=== PATIENT | male | born 1990 | race American Indian/Alaskan Native ===

== ENCOUNTER 2019-11-08 05:38 | Emergency (ER) | payer SELFPAY ==
[2019-11-08 05:53] VITALS: BP 134/102
--- NOTE | 2019-11-08 07:29 | XRay Report ---
Right hand, 3 views INDICATION: Pain following injury FINDINGS: There are comminuted, displaced and angulated fractures involving the bases of the fourth a nd fifth metacarpals. The remaining bones of the hand are intact. There is no definite carpal bone fr acture or dislocation. Signer Name: Lex Reyes MD Signed: 11/08/2019 7:25 AM Workstation Name: [id number]
[2019-11-08] MEDS ORDERED: HYDROcodone/ACETAMINOPHEN 5-325 MG TAB PO ONE (09:17)
--- NOTE | 2019-11-08 09:24 | Emergency Department Report ---
Upper Extremity - HPI Chief Complaint: Extremity Injury, Upper Stated Complaint: RT HAND INJURY Time Seen by Provider: 11/08/19 08:46 Upper Extremity: Right Hand Occurred When: 2 Days Mechanism: Hit with Object Severity: mild Symptoms: Yes Swelling, Yes Bruising/Ecchymosis, No Pain with Movement, No Deformity, No Limited Range of Movement, No Numbness, No Weakness, No Laceration or Abrasion Other History: Patient is a 29-year-old male presents ED complaining of mild right finger pain that is much better from 2 days ago. Patient states 2 days ago he was angry and accidentally punched a fridge. Patient states initially he had some pain and then after he straining on his fingers the pain resolved. Patient does state that he noted some swelling to the hand. Patient states he had some pain medication which he took at home that relieved the pain. He denies any laceration or cuts to the finger or hand. ED Review of Systems ROS: Stated complaint: RT HAND INJURY Other details as noted in HPI Comment: All other systems reviewed and negative ED Past Medical Hx - Past Medical History Previous Medical History?: No - Surgical History Past Surgical History?: No - Social History Smoking Status: Current Every Day Smoker Substance Use Type: None, Marijuana - Medications Home Medications: Home Medications Medication Instructions Recorded Confirmed Last Taken Type HYDROcodone/APAP 5-325 [[place] 1 each PO Q6H #12 tablet 11/08/19 Unknown Rx 5-325 mg TAB] Ibuprofen [Motrin] 800 mg PO Q8HR #30 tablet 11/08/19 Unknown Rx Upper Extremity Exam - Exam General: Vital signs noted. No distress. Alert and acting appropriately. Head and Torso: No HEENT Abnormality, No Neck Tenderness, No Chest/Lungs Abnormality, No Abdominal Tenderness, No Back Tenderness Shoulder Exam: Yes Normal Range of Motion in Shoulder, No Shoulder Tenderness, No Clavicle Tenderness, No Shoulder Deformity, No AC Joint Tenderness Arm Exam: No Arm/Humerus Tenderness, No Arm Deformity Elbow: No Elbow Tenderness, No Normal Range of Motion in Elbow, No Elbow Deformity Forearm: No Forearm Tenderness, No Forearm Deformity, No Pain with Pronation, No Pain with Supination Wrist: Yes Normal ROM in Wrist, No Wrist Tenderness, No Wrist Deformity, No Snuffbox Tenderness, No Pain with Axial Thumb Compression Hand: Yes Hand Tenderness (To the palpation of the fourth and fifth base metacarpal), Yes Normal ROM in Digit(s), No Hand Deformity, No Digit Tenderness, No Digit(s) Deformity, No Tendon Dysfunction CMS Exam: No Broken Skin, No Normal Distal Pulses, No Normal Capillary Refill, No Normal Distal Sensation ED Course Vital Signs 11/08/19 05:50 Temperature 98.2 F Pulse Rate 81 Respiratory 18 Rate Blood Pressure 134/102 O2 Sat by Pulse 99 Oximetry ED Medical Decision Making - Radiology Data Radiology results: report reviewed, image reviewed Patient: ASHA SMITH III MR#: [id number] : 1990 Acct:[id number] Age/Sex: 29 / M ADM Date: 11/08/19 Loc: ED Attending Dr: Ordering Physician: ED MD STEFANY Date of Service: 11/08/19 Procedure(s): XR hand 3+V RT Accession Number(s): [id number] cc: ED MD STEFANY Fluoro Time In Minutes: Right hand, 3 views INDICATION: Pain following injury FINDINGS: There are comminuted, displaced and angulated fractures involving the bases of the fourth and fifth metacarpals. The remaining bones of the hand are intact. There is no definite carpal bone fracture or dislocation. Signer Name: Lex Reyes MD Signed: 11/08/2019 7:25 AM Workstation Name: [id number] Transcribed By: SABIHA Dictated By: Lex Reyes MD Electronically Authenticated By: Lex Reyes MD Signed Date/Time: 11/08/19 0725 - Medical Decision Making 29-year-old male presents with fourth and fifth metacarpal fracture ED course: Pt received / [place] tabs in the ED Right hand x-ray ordered. Right hand x-ray shows: See report above Discussed findings with patient. Discussed application of right ulnar gutter splint to be placed. Post-splint evaluation: Capillary refill 2 seconds, patient able to wiggle fingers, neurovascularly intact no loss of sensation. Discussed the patient and orthopedic follow-up in 2-3 days. Referrals given. From follow-up from care physician. Vital signs are normal patient is in no acute or respiratory distress. Patient states understanding all discussed complaint of follow-up. Critical care attestation.: If time is entered above; I have spent that time in minutes in the direct care of this critically ill patient, excluding procedure time. ED Disposition Clinical Impression: Closed boxer's fracture, Hand fracture, right, Ecchymosis Disposition: DC- TO HOME OR SELFCARE Is pt being admited?: No Does the pt Need Aspirin: No Condition: Stable Instructions: Boxer Fracture (ED), Hand Fracture (ED) Additional Instructions: Make sure to follow up with the primary care physician as discussed. Take all your medications as you've been prescribed. If you have any worsening symptoms or develop new symptoms please return to ED immediately. Prescriptions: Ibuprofen [Motrin] 800 mg PO Q8HR #30 tablet HYDROcodone/APAP 5-325 [[place] 5-325 mg TAB] 1 each PO Q6H #12 tablet Referrals: PRIMARY CARE, [Primary Care Provider] - 3-5 Days [facility] [Provider Group] - 3-5 Days [facility] [Provider Group] - 3-5 Days Forms: Accompanied Note, Work/School Release Form(ED) Time of Disposition: 09:29
== END 2019-11-08 10:02 | disposition home or self-care (01) ==
LOC: ED 05:38
DX: S62.314A Displaced fracture of base of fourth metacarpal bone, right hand, initial encounter for closed fracture (principal); S62.336A Displaced fracture of neck of fifth metacarpal bone, right hand, initial encounter for closed fracture; F17.200 Nicotine dependence, unspecified, uncomplicated; F12.90 Cannabis use, unspecified, uncomplicated; Z79.899 Other long term (current) drug therapy; W23.0XXA Caught, crushed, jammed, or pinched between moving objects, initial encounter; Y93.89 Activity, other specified; Y92.89 Other specified places as the place of occurrence of the external cause; Y99.8 Other external cause status
CPT/HCPCS: 99284